=== PATIENT | female | born 1975 | race Two or more races ===

== ENCOUNTER 2017-10-07 09:38 | Day surgery (SDC) | payer OTHER ==
[~2017-10-07 09:38] MED LIST: PROPOFOL INJ 200 MG/20 ML VIAL IV ONE
[2017-10-07 11:37] VITALS: BP 127/73
--- NOTE | 2017-10-07 15:30 | Operative Report ---
Operative Report DATE OF SURGERY: 10/07/17 Operative Report: The risks, benefits and alternatives of the procedure including risks of bleeding, perforation requiring surgery are explained to the patient in detail and informed consent is obtained. Patient is taken back to the endoscopy suite and placed in a left, lateral decubital position. Timeout was called. Propofol medications administered. A rectal examination is done which did not reveal any masses, tears or fissures. An Olympus videoscope was inserted into the patient's rectum. The scope was then carefully advanced all the way to the cecum. The cecum was identified by the usual anatomical landmarks including the ileocecal valve as well as the appendiceal office. Photodocumentation is obtained. The scope was then sequentially pulled back via the various segments of the colon including the ascending colon, hepatic flexure, transverse colon, splenic flexure, descending colon finding to the rectosigmoid portions of the colon. Retroflexion maneuvers performed. PREOPERATIVE DIAGNOSIS: Change in bowel habits, abdominal distention POSTOPERATIVE DIAGNOSIS: Relatively normal colonoscopy except for unusual anatomy around the area of the splenic flexure. There may be some redundancy of the colon and the bowel may be looped in that area. Mild right-sided inflammation status post biopsy rule out lymphocytic, microscopic, collagenous colitis. She may have IBS OPERATION: Colonoscopy with biopsy SURGEON: MANN GARCIA ANESTHESIA: LMAC TISSUE REMOVED OR ALTERED: As noted above. COMPLICATIONS: None. ESTIMATED BLOOD LOSS: None. INTRAOPERATIVE FINDINGS: As noted above. PROCEDURE: Patient tolerated the procedure well. No immediate postprocedure complications are noted. Patient discharged in good condition. Discharge date 10/07/2017. Discharge diet: Regular. Discharge activity: Regular. 2-3 week follow-up to discuss findings. Patient is instructed to call the office or proceed to the emergency room should there be any further problems or questions. We will and pathology.
== END 2017-10-07 11:38 | disposition home or self-care (01) ==
LOC: END 09:38
PROVIDERS: ATTEND Internal Medicine Gastroenterology
PROC: 0DBE8ZX Excision of Large Intestine, Via Natural or Artificial Opening Endoscopic, Diagnostic (ICD-10-PCS; principal; 2017-10-07 11:30)
DX: K52.9 Noninfective gastroenteritis and colitis, unspecified (principal); R19.4 Change in bowel habit
CPT/HCPCS: 45380; J2704; 811

== ENCOUNTER → 2020-06-07 | Outpatient (CLI) | payer MEDICAID ==
--- NOTE | 2020-06-07 14:37 | WOMENS IMAGING REPORT ---
EXAM DESCRIPTION: BILAT SCREENING MAMMO W/CAD IMAGES COMPLETED DATE/TIME: 06/07/2020 1:36 pm REASON FOR STUDY: Z12.31 ENCNTR SCREEN MAMMOGRAM FOR MALIGNANT NEOPLASM OF BREAST Z12.31 ENCNTR SCR EEN MAMMOGRAM FOR MALIGNANT NEOPLASM OF [place] COMPARISON: 01/22/2015. EXAM PARAMETERS: Standard craniocaudal and mediolateral oblique views of each breast recorded using digital acquisition. Read with the assistance of CAD. .FORMERLY [facility] - [employer] [place] Version 9.2 LIMITATIONS: None. FINDINGS: Findings present which are benign by mammographic criteria. No suspicious masses, calcifi cations or architectural distortion. Pertinent benign findings: Benign calcifications. Benign mammographic findings may include one or more of the following: Smooth masses, popcorn/rim/co arse calcifications, asymmetries, post-procedure changes, and lesions with long-standing stability. IMPRESSION: BENIGN MAMMOGRAPHIC FINDINGS. BIRADS 2 BREAST DENSITY: b. There are scattered areas of fibroglandular density. BIRAD: ASSESSMENT: 2 BENIGN FINDING(S) RECOMMENDATION: ROUTINE SCREENING COMMENT: The patient has been notified of the results by letter per [place] requirements. Additional no tification policies are in place for contacting patient with suspicious or incomplete findings. Quality ID #[id number]: The [employer] recommends an annual screening mammogram for women aged 40 years or over. This facility utilizes a reminder system to ensure that all patients receive reminder letters, and/or direct phone calls for appointments. This includes reminders for routine scr eening mammograms, diagnostic mammograms, or other Breast Imaging Interventions when appropriate. Th is patient will be placed in the appropriate reminder system. TECHNICAL DOCUMENTATION: FINDING NUMBER: (1) ASSESSMENT: (1) JOB ID: [id number] 2010 [employer]- All Rights Reserved Reading location - IP/workstation name: [email or web address]
== END ==
LOC: WI 12:54
PROVIDERS: ATTEND Nurse Practitioner Family
DX: Z12.31 Encounter for screening mammogram for malignant neoplasm of breast (principal)
CPT/HCPCS: 77067

== ENCOUNTER 2020-08-24 18:06 | Emergency (ER) | payer MEDICAID ==
[2020-08-24 18:13] VITALS: BP 141/89
[2020-08-24] MEDS ORDERED: DIPH/PERTUSS(ACELL)/TETANUS VAC/PF 0.5 ML SYR (>=10YO) IM ONE (18:51)
--- NOTE | 2020-08-24 18:54 | ER Document Report ---
HPI - HPI Patient complains to provider of: left index finger laceration Time Seen by Provider: 08/24/20 18:45 Pain Level: 5 Context: 44-year-old female presents to the emergency room with a laceration to the tip of her left index finger. States she was cutting fabric when the scissors went through the fabric cutting the tip of her left index finger. States she was unable to stop the bleeding. Last tetanus greater than 20 years ago. Patient is right-handed. Associated Symptoms: None Exacerbated by: Movement Relieved by: Remaining still Similar symptoms previously: No Recently seen / treated by doctor: No - ROS Systems Reviewed and Negative: Yes All other systems reviewed and negative - NEURO Neurology: DENIES: Weakness - REPRODUCTIVE Reproductive: DENIES: : - MUSCULOSKELETAL Musculoskeletal: REPORTS: Extremity pain - DERM Skin Color: Erythema Skin Problems: Laceration Past Medical History - General Information source: Patient - Social History Smoking Status: Never Smoker Chew tobacco use (# tins/day): No Frequency of alcohol use: None Drug Abuse: None Family History: Reviewed & Not Pertinent - Past Medical History Cardiac Medical History: Denies: Hx Coronary Artery Disease, Hx Heart Attack, Hx Hypertension Pulmonary Medical History: Denies: Hx Asthma, Hx Bronchitis, Hx COPD, Hx Pneumonia Neurological Medical History: Denies: Hx Cerebrovascular Accident, Hx Seizures Musculoskeletal Medical History: Denies Hx Arthritis Past Surgical History: Denies: Hx Hysterectomy, Hx Pacemaker - Immunizations Hx Diphtheria, Pertussis, Tetanus Vaccination: Yes Vertical Provider Document - CONSTITUTIONAL Agree With Documented VS: Yes Exam Limitations: No Limitations General Appearance: Mild Distress - INFECTION CONTROL TRAVEL OUTSIDE OF THE [place] IN LAST 30 DAYS: No - HEENT HEENT: Atraumatic, Normocephalic - NECK Neck: Normal Inspection, Supple, Thyroid Normal - RESPIRATORY Respiratory: Breath Sounds Normal, No Respiratory Distress, Chest Non-Tender - CARDIOVASCULAR Cardiovascular: Regular Rate, Regular Rhythm, No Murmur - MUSCULOSKELETAL/EXTREMETIES Musculoskeletal/Extremeties: Tender - Tenderness to the distal aspect of the left index finger. Bleeding is controlled. There is a small flap laceration. It is nonsuturable. - NEURO Level of Consciousness: Awake, Alert, Appropriate Motor/Sensory: No Motor Deficit, No Sensory Deficit Notes: Positive left radial pulse. Capillary refill less than 3 seconds. - DERM Integumentary: Warm, Dry, Laceration - Less than a 1/4 cm flap laceration that is well-healing noted at the distal aspect of the left index finger. Bleeding is controlled. Nonsuturable. Course - Re-evaluation Re-evalutation: 08/24/20 18:57 Wound was cleansed with normal saline Steri-Strips and dressing applied by nursing staff as documented. Patient was counseled on proper wound care. Tetanus was updated. Can take Tylenol as needed for pain. Outpatient follow-up as needed. Return to the emergency room for any new or worsening symptoms. - Vital Signs Vital signs: Temp Pulse Resp BP Pulse Ox 98.1 F 91 18 141/89 H 99 08/24/20 18:11 08/24/20 18:11 08/24/20 18:11 08/24/20 18:11 08/24/20 18:11 - Laboratory Results Critical Laboratory Results Reviewed: No Critical Results - Radiology Results Critical Radiology Results Reviewed: No Critical Results Discharge - Discharge Clinical Impression: Laceration of left index finger w/o foreign body w/o damage to nail Qualifiers: Encounter type: initial encounter Qualified Code(s): S61.211A - Laceration without foreign body of left index finger without damage to nail, initial encounter Condition: Stable Disposition: HOME, SELF-CARE Instructions: Care of Steri-Strip Closure ([facility]), Tetanus Immunization Given ([facility]) Additional Instructions: Keep wound clean and dry. Can remove dressing in 24 hours. Steri-Strips will fall off on their own in about 7 to 10 days. Tylenol as needed for pain. Your tetanus was updated. Return to the emergency room for any new or worsening symptoms. Referrals: [facility] [employer] [Primary Care Provider] - Follow up as needed
== END 2020-08-24 20:23 | disposition home or self-care (01) ==
LOC: ER 18:06
DX: S61.211A Laceration without foreign body of left index finger without damage to nail, initial encounter (principal); W26.8XXA Contact with other sharp object(s), not elsewhere classified, initial encounter; Y93.89 Activity, other specified; Z23 Encounter for immunization
CPT/HCPCS: 90471; 90715; 99282